=== PATIENT | female | born 1940 | race Two or more races ===

== ENCOUNTER 2021-04-03 16:41 | Emergency (ER) | payer OTHER ==
[~2021-04-03] VITALS: Ht 167.6 cm; Wt 58.1 kg
[2021-04-03] MEDS ORDERED: MACROBID 100 M100 MG PO (23:34)
== END 2021-04-04 02:12 | disposition home or self-care (01) ==
LOC: ER 16:41
DX: N93.8 Other specified abnormal uterine and vaginal bleeding (principal); N39.0 Urinary tract infection, site not specified